=== PATIENT | male | born 1970 | race African-American/Black ===

== ENCOUNTER 2022-05-20 11:43 | Inpatient (IN) | payer OTHER ==
[2022-05-20 12:33] LABS: Hemoglobin 4.8 g/dL (13.5-17.5); Mean Corpuscular HGB CONC 26.8 g/dL (32.0-36.0); Mean Corpuscular Hemoglobin 16.7 pg (27.0-33.0); Mean Corpuscular Volume 62.2 fl (81.2-95.1); Mean Platelet Volume 9.3 fl (7.4-10.4); Platelet Count 536 10x3/uL (150-450); RBC Distribution Width 22.5 % (11.5-14.5); Red Blood Cell (RBC) Count 2.88 10x6/uL (4.32-5.72); White Blood Cell (WBC) Count 26.3 10x3/uL (3.5-10.5)
[2022-05-20 12:46] LABS: ALT (SGPT) 10 U/L (8-55); AST (SGOT) 12 U/L (5-34); Albumin 3.2 g/dL (3.5-5.0); Alkaline Phosphatase 75 U/L (40-110); Anion Gap 16 mmol/L (10-20); BUN (Urea Nitrogen) 12 mg/dL (8.4-25.7); Bilirubin, Total 0.3 mg/dL (0.2-1.2); Calc. Creatinine Clearance 0 mL/min (70-130); Calcium 8.8 mg/dL (7.8-10.44); Carbon Dioxide 22 mmol/L (22-29); Chloride 100 mmol/L (98-107); Estimated GFR 61; Globulin 4.8 g/dL (2.4-3.5); Glucose 103 mg/dL (70-105); Potassium 3.8 mmol/L (3.5-5.1); Sodium 134 mmol/L (136-145)
[2022-05-20 13:18] LABS: Band 12 % (5-11); Lymphocytes 3 % (21-51); Metamyelocyte 1 % (0-0); Monocytes 10 % (0-10); Neutrophil 72 % (42-75)
[2022-05-20 13:21] LABS: Anisocytosis MODERATE=16-30 cells (100X) (0-5/hpf); Microcytosis MODERATE=15-30 cells (100X) (0-5/hpf); Nucleated RBC 2 % (0)
[2022-05-20 13:22] LABS: Hypochromia MODERATE=16-30 cells (100X) (0-5/hpf)
[2022-05-20 13:35] LABS: Elliptocytes SLIGHT = 2-5 cells (100X) (0-1/hpf); Macrocytosis SLIGHT = 6-15 cells (100X) (0-5/hpf); Polychromasia SLIGHT = 2-3 cells (100X) (0-2/hpf)
[2022-05-20 13:36] LABS: Dohle Bodies SLIGHT; Platelet Clumps SLIGHT; Platelet Morphology Comment Appears Increased
[2022-05-20 13:40] LABS: MDiff Complete? YES
[2022-05-20 13:42] LABS: Reflex for Review?? YES
[2022-05-20] MEDS ORDERED: Cefepime 2 GM VIAL ONE (14:28)
[2022-05-20 15:01] LABS: SARS-CoV-2 NAA Rapid Test Not Detected (NotDetected)
[2022-05-20] MEDS ORDERED: cefTRIAXone Sodium 1 MG in Syringe 0 ML IVPB SCH (16:30)
[2022-05-20] MEDS ORDERED: predniSONE 20 MG TAB PO SCH (18:00)
[2022-05-20] MEDS ORDERED: cefTRIAXone\\ROCEPHIN 1 GM in Sodium Chloride 0.9% 100 ML IVPB SCH (18:00)
[2022-05-20 18:46] LABS: Hemoglobin 7.1 g/dL (13.5-17.5)
[2022-05-20 18:53] VITALS: BMI 17.5
[2022-05-20] MEDS: Sodium Chloride 0.9% 1,000 ML IV SCH (20:03)
[2022-05-20] MEDS: Azithromycin 500 MG in Sodium Chloride 0.9% 250 ML 250 ML IVPB SCH (20:04)
[2022-05-21] MEDS: Sodium Chloride 0.9% 1,000 ML IV SCH ×3 (02:15→22:07)
[2022-05-21 04:52] LABS: Hemoglobin 6.6 g/dL (13.5-17.5); Mean Corpuscular HGB CONC 29.6 g/dL (32.0-36.0); Mean Corpuscular Hemoglobin 19.9 pg (27.0-33.0); Mean Corpuscular Volume 67.2 fl (81.2-95.1); Mean Platelet Volume 9.3 fl (7.4-10.4); Platelet Count 519 10x3/uL (150-450); RBC Distribution Width 25.6 % (11.5-14.5); Red Blood Cell (RBC) Count 3.32 10x6/uL (4.32-5.72)
[2022-05-21 05:12] LABS: MDiff Complete? YES
[2022-05-21 05:14] LABS: Anion Gap 15 mmol/L (10-20); BUN (Urea Nitrogen) 9 mg/dL (8.4-25.7); Calc. Creatinine Clearance 85 mL/min (70-130); Calcium 8.3 mg/dL (7.8-10.44); Carbon Dioxide 20 mmol/L (22-29); Chloride 105 mmol/L (98-107); Estimated GFR 104; Glucose 101 mg/dL (70-105); Potassium 4.2 mmol/L (3.5-5.1); Sodium 136 mmol/L (136-145)
[2022-05-21 05:15] LABS: Band 19 % (5-11); Lymphocytes 2 % (21-51); Monocytes 2 % (0-10); Neutrophil 77 % (42-75); Nucleated RBC 2 % (0)
[2022-05-21 05:16] LABS: Microcytosis MODERATE=15-30 cells (100X) (0-5/hpf)
[2022-05-21 05:17] LABS: Anisocytosis MODERATE=16-30 cells (100X) (0-5/hpf); Hypochromia MODERATE=16-30 cells (100X) (0-5/hpf); Platelet Morphology Comment Appears Adequate; Polychromasia SLIGHT = 2-3 cells (100X) (0-2/hpf); Reflex for Review?? YES
[2022-05-21] MEDS: Pantoprazole 40 MG VIAL IVP SCH (09:36)
[2022-05-21] MEDS ORDERED: Piperacillin/Tazobactam 3.375 GM in Sodium Chloride 0.9% 100 ML IVPB SCH (10:00)
[2022-05-21] MEDS: Piperacillin/Tazobactam 3.375 GM in Sodium Chloride 0.9% 100 ML IVPB SCH ×2 (14:56→21:08)
[2022-05-21] MEDS: Acetaminophen 325 MG TAB PO PRN ×2 (14:57→21:06)
[2022-05-21] MEDS ORDERED: Sodium Chloride 0.9% 1,000 ML ONE (21:05)
[2022-05-21] MEDS: Azithromycin 500 MG in Sodium Chloride 0.9% 250 ML 250 ML IVPB SCH (21:11)
[2022-05-21] MEDS: HYDROcodone/Acetaminophen 5/325 mg Tablet PO PRN (23:15)
[2022-05-22 05:23] LABS: #Basophils 0.1 10x3/uL (0.0-0.2); #Eosinphils 0.2 10x3/uL (0.0-0.5); #Monocytes 1.6 10x3/uL (0.0-1.1); #Neutrophils 9.8 10x3/uL (1.5-8.4); %Basophils 0.4 % (0.0-2.0); %Eosinophils 1.5 % (0.0-6.0); %Lymphocytes 13.8 % (18.0-47.0); %Monocytes 11.5 % (0.0-10.0); %Neutrophils 71.4 % (40.0-75.0); Hemoglobin 9.1 g/dL (13.5-17.5); Mean Corpuscular HGB CONC 30.1 g/dL (32.0-36.0); Mean Corpuscular Hemoglobin 21.3 pg (27.0-33.0); Mean Corpuscular Volume 70.6 fl (81.2-95.1); Mean Platelet Volume 9.2 fl (7.4-10.4); Platelet Count 575 10x3/uL (150-450); RBC Distribution Width 26.4 % (11.5-14.5); Red Blood Cell (RBC) Count 4.28 10x6/uL (4.32-5.72); White Blood Cell (WBC) Count 13.7 10x3/uL (3.5-10.5)
[2022-05-22] MEDS: HYDROcodone/Acetaminophen 5/325 mg Tablet PO PRN (05:29)
[2022-05-22] MEDS: Piperacillin/Tazobactam 3.375 GM in Sodium Chloride 0.9% 100 ML IVPB SCH (05:29)
[2022-05-22 05:34] LABS: Anion Gap 14 mmol/L (10-20); BUN (Urea Nitrogen) 7 mg/dL (8.4-25.7); Calc. Creatinine Clearance 77 mL/min (70-130); Calcium 8.4 mg/dL (7.8-10.44); Carbon Dioxide 22 mmol/L (22-29); Chloride 107 mmol/L (98-107); Estimated GFR 95; Glucose 84 mg/dL (70-105); Potassium 3.8 mmol/L (3.5-5.1); Sodium 139 mmol/L (136-145)
[2022-05-22 08:15] VITALS: BP 111/62; TEMP 97.5
[2022-05-22] MEDS: Pantoprazole 40 MG VIAL IVP SCH (09:55)
[2022-05-22] MEDS: Sodium Chloride 0.9% 1,000 ML IV SCH (09:55)
== END 2022-05-22 12:15 | disposition home or self-care (01) | DRG 871 ==
LOC: CSHERS 11:43 → CSHTELE 16:32
PROVIDERS: ADMIT Internal Medicine; ATTEND Internal Medicine
PROC: 30233N1 Transfusion of Nonautologous Red Blood Cells into Peripheral Vein, Percutaneous Approach (ICD-10-PCS; principal; 2022-05-20)
PROC: 3E03329 Introduction of Other Anti-infective into Peripheral Vein, Percutaneous Approach (ICD-10-PCS; 2022-05-20)
DX: A41.9 Sepsis, unspecified organism (principal); J18.9 Pneumonia, unspecified organism; K50.911 Crohn's disease, unspecified, with rectal bleeding; D62 Acute posthemorrhagic anemia; K50.913 Crohn's disease, unspecified, with fistula; J98.11 Atelectasis; Z20.822 Contact with and (suspected) exposure to COVID-19; Z86.718 Personal history of other venous thrombosis and embolism; Z79.899 Other long term (current) drug therapy; Z87.891 Personal history of nicotine dependence
CPT/HCPCS: 36415; 36430; 71045; 80048; 80053; 83605; 85025; 85060; 86850; 86900; 86901; 87040; 93005; 94760; C9113; J0456; J0692; J0696; J1956; J2543; J3370; J3490; J7050; J7512; P9016; U0002